=== PATIENT | female | born 1985 | race Two or more races ===

== ENCOUNTER 2023-07-23 12:09 | Emergency (ER) | payer OTHER, MEDICAID, SELFPAY ==
[2023-07-23 12:22] VITALS: BP 170/110; PULSE 121; O2SAT 18; BMI 26.4
[2023-07-23 12:32] VITALS: BP 166/103; PULSE 115; RESP 18; TEMP 36.6; O2SAT 98
--- NOTE | 2023-07-23 12:35 | PC.NURSE ---
pt comes in via ems after being found
--- NOTE | 2023-07-23 12:35 | PC.NURSE ---
pt comes in via ems. pt was found on [facility] where a bystander brought pt to [facility]. puneet brought pt and pt's son in by ambulation. upon initial assessment, pt was extremely disheveled and withdrawn from conversation. son was climbing all over mother where pt had no emotion. when asking pt questions, pt was barely responding to questions being asked. provider came in to speak w/ pt. pt states she is here for intoxication but refused to answer any other questions. when provider left, this RN had conversation with pt and pt states that she denies substance use of any kind. pt became extremely shaky when asking pt what we can do for her. while asking pt questions, this RN asked pt if she had thought of SI/HI - pt denied. asked pt if she felt unsafe - pt verbalized that she felt unsafe in present environment as well as at home. this rn asked pt if she was in trouble and if she was trying to run away from someone - pt stated yes. attempted to ask a few more questions but pt refused to answer any. let pt know to press the call hernández when she is ready to speak with me.
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
[2023-07-23 12:55] LABS: MANUAL DIFF FLAG NO
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
[2023-07-23 12:57] LABS: Basophils Absolute Auto 0.1 X10*3/uL (0.0-0.2); Basophils Percent Auto 0.4 % (0-2); Eosinophils Absolute Auto 0.1 X10*3/uL (0.0-0.4); Eosinophils Percent Auto 0.4 % (0-4); Hematocrit 43.3 % (37.0-47.0); Hemoglobin 14.1 g/dl (12.0-16.0); Imm Gran Abs Auto 0.03 X10*3/uL (0.00-0.03); Imm Gran Pct Auto 0.3 % (0.0-0.4); Lymphocytes Absolute Auto 2.4 X10*3/uL (1.2-4.9); Lymphocytes Percent Auto 20.4 % (20-40); Mean Corpuscular HGB Conc 32.6 g/dl (31.0-35.0); Mean Corpuscular Hemoglobin 27.2 pg (27.0-33.0); Mean Corpuscular Volume 83.6 fL (80.0-98.0); Mean Platelet Volume 9.6 fL (9.4-12.3); Monocytes Absolute Auto 1.1 X10*3/uL (0.1-1.2); Neutrophils Absolute Auto 8.2 x10*3/uL (2.0-8.3); Neutrophils Percent Auto 69.5 % (45-73); Platelet Count 412 X10*3/uL (160-400); Red Blood Count 5.18 X10*6/uL (4.20-5.50); Red Cell Distribution Width 13.1 % (11.0-16.0); White Blood Count 11.8 X10*3/uL (4.8-10.8)
--- NOTE | 2023-07-23 12:59 | PC.NURSE ---
call placed to [facility], officer to come to [facility]
[2023-07-23 13:16] LABS: Acetaminophen LAB < 17 mcg/mL (<30); Salicylate < 5.0 mg/dL (15-30)
[2023-07-23 13:24] LABS: Anion Gap 14 (12-20); HCG Quantitative < 2 mIU/mL
[2023-07-23 13:26] LABS: Alanine Aminotransferase 10 U/L (0-31); Albumin Level 4.5 g/dL (3.5-5.0); Alkaline Phosphatase 82 U/L (39-117); Aspartate Amino Transferase 16 U/L (5-31); Bilirubin Total 0.9 mg/dL (0.0-1.0); Blood Urea Nitrogen 10 mg/dL (9-16); Calcium 9.9 mg/dL (8.4-10.2); Carbon Dioxide 22 mmol/L (22-29); Chloride 106 mmol/L (96-108); Creatinine Clr Calc Pharmacy 86.3; Estimated Glomerular Filt Rate > 60; Ethanol < 10 mg/dL; Glucose Random 114 mg/dL (60-115); Magnesium 1.9 mg/dL (1.6-2.6); Potassium 3.7 mmol/L (3.3-5.1); Sodium 138 mmol/L (135-145); Total Protein 8.7 g/dL (6.5-8.0)
[2023-07-23 13:33] LABS: VBG Base Excess -1.1 mmol/L; VBG HCO3 21 mmol/L (22-26); VBG pCO2 28 mmHg; VBG pH 7.47 (7.32-7.43); VBG pO2 64 mmHg
[2023-07-23 13:34] LABS: Carbon Monoxide Refer to POC result
--- NOTE | 2023-07-23 13:43 | PC.NURSE ---
call placed to [facility] again. still no response from them if a person is coming out to [facility]. David states he is going to call his customer engagement manager again.
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
--- NOTE | 2023-07-23 14:47 | PC.NURSE ---
instructional support specialist # for high risk victims unit called [phone] heriberto instructional support specialist to be contacted and will call back to the ed
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
--- NOTE | 2023-07-23 15:42 | PC.NURSE ---
adam from [facility] stated they are no longer coming to the ED. told to contact rory medical assistant supervisor [phone]
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
[2023-07-23 16:00] VITALS: BP 148/95; PULSE 85; RESP 16; O2SAT 97
--- NOTE | 2023-07-23 16:22 | PC.NURSE ---
MSP arrival to ed
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
--- NOTE | 2023-07-23 17:16 | PC.NURSE ---
trooper contact info [phone] and [phone]
--- NOTE | 2023-07-23 17:31 | PC.NURSE ---
MSP left info with patient for further contact if needed/wanted.
--- NOTE | 2023-07-23 17:44 | PC.NURSE ---
multiple attempts to rereach rory and DCF office. no answer. currently on hold with the DCF hotline
--- NOTE | 2023-07-23 17:48 | PC.NURSE ---
hotline reports that the call was recieved at 1700 and at 1730 a team was dispatched out to [facility] ED
--- NOTE | 2023-07-23 18:05 | MHC.CM.ED ---
Addendum entered by Amelia Younger 07/23/23 21:52: DCF in to speak with patient. Patient agreeable to having child cared for by friend, Fidelina Miranda, will she remains in the ED for psych evaluation. Urine tox screen obtained and is negative. Pt is awaiting crisis evaluation. CM will follow for discharge planning when cleared by psych or if necessary. Original Note: CM consulted. Pt awaiting DCF and probable psych consult. CM will assess patient for discharge needs in needed.
--- NOTE | 2023-07-23 18:27 | PC.NURSE ---
pt requesting dc paperwork. [facility] hotline being called right now as instructed earlier by rory rae applications project manager
--- NOTE | 2023-07-23 18:39 | PC.NURSE ---
hotline tire building supervisor called states she is calling her team to see where they are. will call back. pt is pacing the doorway of her room asking for papers to leave.
--- NOTE | 2023-07-23 19:42 | PC.NURSE ---
DCF in interviewing pt,
[2023-07-23 20:40] LABS: Appearance Urine Clear; Color Urine Dark Yellow; Glucose Urine UA Negative (Negative); Leukocyte Esterase Urine Small (1+) (Negative); Nitrite Urine Negative (Negative); Specific Gravity - Urine 1.025 (1.005-1.025); UMIC TRIGGER UACC YES; Urine Blood Small (1+) (Negative); Urine Ketones 40 mg/dL (Negative); Urine Protein 300 (3+) mg/dL (Neg-Trace)
[2023-07-23 20:49] LABS: Bacteria Urine 3+ (None Seen); RBC Urine >20 /HPF (0-2); UACC Culture Trigger YES
[2023-07-23 20:56] LABS: Amphetamine Screen Urine Not Detected (Not Detect); Barbiturates, Urine Not Detected (Not Detect); Benzodiazepines Screen Urine Not Detected (Not Detect); Cannabinoid Screen Urine Not Detected (Not Detect); Cocaine Screen Urine Not Detected (Not Detect); Fentanyl, urine Not Detected (Not Detect); Opiate Screen Urine Not Detected (Not Detect); Phencyclidine Screen Urine Not Detected (Not Detect)
--- NOTE | 2023-07-23 21:36 | MHC.CARE ---
Per DCF investigators, Fidelina Miranda, a friend of the patient has been approved to take care of pt's child overnight while pt is assessed by security trainer.
[2023-07-23 22:00] VITALS: BP 145/103; PULSE 82; RESP 16; TEMP 37.1; O2SAT 97
--- NOTE | 2023-07-23 22:47 | PC.NURSE ---
care team in with pt
[2023-07-24] VITALS: BP 130/86; PULSE 84; RESP 16; TEMP 37.1; O2SAT 100
[2023-07-24 06:10] VITALS: BP 150/87; PULSE 67; RESP 16; TEMP 37.1; O2SAT 97
== END 2023-07-24 07:03 | disposition home or self-care (01) ==
PROVIDERS: Physician Assistant; Emergency Provider Emergency Medicine
DX: F41.1 Generalized anxiety disorder (principal); F43.9 Reaction to severe stress, unspecified; Z79.899 Other long term (current) drug therapy
CPT/HCPCS: 36415; 80053; 80143; 80179; 80307; 81001; 82803; 83735; 84702; 85025; 87086; 99284; 99285; S9485

== ENCOUNTER 2024-03-04 10:15 | Outpatient (REF) | payer MEDICAID, SELFPAY ==
[2024-03-04 10:49] LABS: MANUAL DIFF FLAG NO
[2024-03-04 10:51] LABS: Basophils Absolute Auto 0.1 X10*3/uL (0.0-0.2); Basophils Percent Auto 0.3 % (0-2); Eosinophils Absolute Auto 0.3 X10*3/uL (0.0-0.4); Eosinophils Percent Auto 1.7 % (0-4); Hematocrit 41.5 % (37.0-47.0); Hemoglobin 13.5 g/dl (12.0-16.0); Imm Gran Abs Auto 0.12 X10*3/uL (0.00-0.03); Imm Gran Pct Auto 0.8 % (0.0-0.4); Lymphocytes Absolute Auto 3.9 X10*3/uL (1.2-4.9); Lymphocytes Percent Auto 26.6 % (20-40); Mean Corpuscular HGB Conc 32.5 g/dl (31.0-35.0); Mean Corpuscular Hemoglobin 26.6 pg (27.0-33.0); Mean Corpuscular Volume 81.9 fL (80.0-98.0); Mean Platelet Volume 9.1 fL (9.4-12.3); Neutrophils Absolute Auto 9.3 x10*3/uL (2.0-8.3); Neutrophils Percent Auto 63.6 % (45-73); Platelet Count 442 X10*3/uL (160-400); Red Blood Count 5.07 X10*6/uL (4.20-5.50); Red Cell Distribution Width 13.1 % (11.0-16.0); White Blood Count 14.7 X10*3/uL (4.8-10.8)
[2024-03-04 11:18] LABS: Alanine Aminotransferase 14 U/L (0-31); Alkaline Phosphatase 90 U/L (39-117); Anion Gap 11 (12-20); Aspartate Amino Transferase 18 U/L (5-31); Bilirubin Total 0.4 mg/dL (0.0-1.0); Blood Urea Nitrogen 12 mg/dL (9-16); Calcium 9.5 mg/dL (8.4-10.2); Carbon Dioxide 29 mmol/L (22-29); Chloride 103 mmol/L (96-108); Cholesterol 206 mg/dL (<200); Estimated Glomerular Filt Rate > 60; Glucose Random 111 mg/dL (60-115); HDL Cholesterol 43 mg/dL (>40); LDL Cholesterol Calculated 135 mg/dL (<100); Potassium 4.3 mmol/L (3.3-5.1); Sodium 139 mmol/L (135-145); Total Protein 7.9 g/dL (6.5-8.0); Triglycerides 143 mg/dL (<150)
[2024-03-04 11:34] LABS: Thyroid Stimulating Hormone 2.13 uIU/mL (0.32-4.0)
[2024-03-04 14:31] LABS: Creatinine Urine 217.18 mg/dL; Microalbum/Creatinine Ratio Ur 61.6 ug/mg cr (<30)
== END 2024-03-04 10:16 | disposition home or self-care (01) ==
LOC: HO.10HDL 10:15
PROVIDERS: Visit Provider Internal Medicine
DX: Z00.01 Encounter for general adult medical examination with abnormal findings (principal); I10 Essential (primary) hypertension
CPT/HCPCS: 36415; 80053; 80061; 82043; 82570; 84443; 85025

== ENCOUNTER 2024-03-19 10:09 | Outpatient (REF) | payer MEDICAID, SELFPAY ==
[2024-03-19 10:39] LABS: MANUAL DIFF FLAG NO
[2024-03-19 10:48] LABS: Basophils Absolute Auto 0.1 X10*3/uL (0.0-0.2); Basophils Percent Auto 0.4 % (0-2); Eosinophils Absolute Auto 0.2 X10*3/uL (0.0-0.4); Eosinophils Percent Auto 1.5 % (0-4); Hematocrit 40.7 % (37.0-47.0); Hemoglobin 13.1 g/dl (12.0-16.0); Imm Gran Abs Auto 0.05 X10*3/uL (0.00-0.03); Imm Gran Pct Auto 0.4 % (0.0-0.4); Lymphocytes Absolute Auto 2.9 X10*3/uL (1.2-4.9); Lymphocytes Percent Auto 25.5 % (20-40); Mean Corpuscular HGB Conc 32.2 g/dl (31.0-35.0); Mean Corpuscular Volume 83.7 fL (80.0-98.0); Mean Platelet Volume 9.5 fL (9.4-12.3); Monocytes Absolute Auto 0.7 X10*3/uL (0.1-1.2); Monocytes Percent Auto 6.4 % (2-11); Neutrophils Absolute Auto 7.6 x10*3/uL (2.0-8.3); Neutrophils Percent Auto 65.8 % (45-73); Platelet Count 461 X10*3/uL (160-400); Red Blood Count 4.86 X10*6/uL (4.20-5.50); Red Cell Distribution Width 13.2 % (11.0-16.0); White Blood Count 11.5 X10*3/uL (4.8-10.8)
[2024-03-20 09:04] LABS: Follicle Stimulating Hormone 2.1 mIU/mL; Prolactin 118.6 ng/mL
== END 2024-03-19 10:10 | disposition home or self-care (01) ==
LOC: HO.10HDL 10:09
PROVIDERS: Visit Provider Internal Medicine
DX: D64.89 Other specified anemias (principal); F32.89 Other specified depressive episodes; I10 Essential (primary) hypertension; N91.1 Secondary amenorrhea
CPT/HCPCS: 36415; 83001; 84146; 85025

== ENCOUNTER 2024-05-19 10:47 | Outpatient (REF) | payer MEDICAID, SELFPAY ==
--- NOTE | ~2024-05-19 | MR_ITS ---
EXAMINATION: MR BRAIN WITHOUT AND WITH CONTRAST CLINICAL INFORMATION: Hyperprolactinemia COMPARISON: None TECHNIQUE: Multiplanar multisequence MR imaging of the brain was obtained without and following the administration of 4 mL Gadavist intravenous contrast. FINDINGS: The pituitary gland is normal in overall size, contour, and signal intensity on precontrast imaging. It enhances homogeneously on postcontrast sequences, without any evidence of focal delayed enhancement to suggest a microadenoma. The infundibulum remains midline and the optic chiasm is in a normal location. The cavernous sinus enhances normally. There is no acute infarct on diffusion-weighted imaging. No extra-axial collection or mass effect/herniation. Normal parenchymal signal characteristics. No hydrocephalus. The ventricles are normal in morphology and size. No abnormal parenchymal or extra-axial enhancement. The major flow voids at the skull base are preserved. The midline structures are normal. The cerebellar tonsils are normally positioned. The craniocervical junction is normal. Marrow signal is within normal limits. The visualized soft tissues are without significant abnormality. Right posterior ethmoid sinus mucosal thickening. MR/MR head/brain wo/w con IMPRESSION: Unremarkable contrast-enhanced MRI of the brain. No evidence of pituitary adenoma.
[2024-05-19] MEDS: gadobutroL 2 ML VIAL IVPUSH ×2 (12:07→12:08)
== END 2024-05-19 10:48 | disposition home or self-care (01) ==
LOC: HO.MRI 10:47
PROVIDERS: PCP Internal Medicine; Visit Provider Internal Medicine
DX: E22.1 Hyperprolactinemia (principal)
CPT/HCPCS: 70553; A9585

== ENCOUNTER 2025-03-24 11:40 | Outpatient (REF) | payer MEDICAID, SELFPAY ==
[2025-03-24 12:55] LABS: MANUAL DIFF FLAG NO
[2025-03-24 13:15] LABS: Basophils Absolute Auto 0.1 X10*3/uL (0.0-0.2); Basophils Percent Auto 0.5 % (0-2); Eosinophils Absolute Auto 0.2 X10*3/uL (0.0-0.4); Eosinophils Percent Auto 1.5 % (0-4); Hematocrit 38.6 % (37.0-47.0); Hemoglobin 12.4 g/dl (12.0-16.0); Imm Gran Abs Auto 0.05 X10*3/uL (0.00-0.03); Imm Gran Pct Auto 0.4 % (0.0-0.4); Lymphocytes Absolute Auto 2.8 X10*3/uL (1.2-4.9); Lymphocytes Percent Auto 25.2 % (20-40); Mean Corpuscular HGB Conc 32.1 g/dl (31.0-35.0); Mean Corpuscular Hemoglobin 27.2 pg (27.0-33.0); Mean Corpuscular Volume 84.6 fL (80.0-98.0); Mean Platelet Volume 9.6 fL (9.4-12.3); Monocytes Absolute Auto 0.9 X10*3/uL (0.1-1.2); Neutrophils Absolute Auto 7.2 x10*3/uL (2.0-8.3); Neutrophils Percent Auto 64.4 % (45-73); Platelet Count 477 X10*3/uL (160-400); Red Blood Count 4.56 X10*6/uL (4.20-5.50); White Blood Count 11.1 X10*3/uL (4.8-10.8)
[2025-03-24 13:17] LABS: Alanine Aminotransferase 21 U/L (0-31); Alkaline Phosphatase 92 U/L (39-117); Anion Gap 11 (12-20); Aspartate Amino Transferase 25 U/L (5-31); Bilirubin Total 0.3 mg/dL (0.0-1.0); Blood Urea Nitrogen 12 mg/dL (9-16); Calcium 9.2 mg/dL (8.4-10.2); Carbon Dioxide 27 mmol/L (22-29); Chloride 103 mmol/L (96-108); Estimated Glomerular Filt Rate > 60; Glucose Random 92 mg/dL (60-115); Potassium 4.1 mmol/L (3.3-5.1); Sodium 137 mmol/L (135-145); Total Protein 7.5 g/dL (6.5-8.0)
[2025-03-24 13:44] LABS: Creatinine Urine 323.53 mg/dL; Protein/Creatinine Ratio, Ur 0.25 (<0.2); Total Protein Urine Random 80 mg/dL (<12)
== END 2025-03-24 11:41 | disposition home or self-care (01) ==
LOC: HO.10HDL 11:40
PROVIDERS: Visit Provider Internal Medicine
DX: Z00.00 Encounter for general adult medical examination without abnormal findings (principal); R80.8 Other proteinuria; D64.9 Anemia, unspecified; I10 Essential (primary) hypertension
CPT/HCPCS: 36415; 80053; 82570; 84156; 85025

== ENCOUNTER 2025-03-28 09:51 | Outpatient (REF) | payer MEDICAID, SELFPAY | END 2025-03-28 09:52 | disposition home or self-care (01) | LOC: HO.MAMMO 09:51 | PROVIDERS: PCP Internal Medicine; Visit Provider Internal Medicine | DX: Z12.31 Encounter for screening mammogram for malignant neoplasm of breast (principal) | CPT/HCPCS: 77063; 77067 ==

== ENCOUNTER → 2025-03-28 10:15 | Outpatient (BNV) | payer MEDICAID, SELFPAY | PROVIDERS: PCP Internal Medicine; Visit Provider Internal Medicine | DX: Z12.31 Encounter for screening mammogram for malignant neoplasm of breast (principal) | CPT/HCPCS: 77063; 77067 ==

== ENCOUNTER 2025-03-31 09:56 | Outpatient (AMB) | payer MEDICAID, SELFPAY ==
--- NOTE | 2025-03-31 09:58 | HO.NEPHOV ---
Vital Signs 03/31/25 10:00 Height 5 ft 1 in Weight 163 lb BMI 30.8 BP 110/74 Blood Pressure Location Rt brachial Position Sitting Intake Visit Reasons: ENP: HTN & Proteinuria/ Conf Intake Note: Patient presents for follow up Allergies lactose Allergy (Verified 03/31/25 10:01) Unknown Medication List - Last Reconciled 03/31/25 by Jack Loera MD docusate sodium 100 mg PO BID escitalopram oxalate mg PO labetalol 200 mg PO BID magnesium oxide 400 mg PO DAILY nifedipine ER 30 mg PO DAILY norethindrone (contraceptive) mg PO HPI Comments Details: Moriah is a pleasant 39-year-old woman referred for proteinuria. She tells me that she has had proteinuria in the past. Few years ago she was seen in [place] and she had a workup. However she did not follow-up. She has a history of preeclampsia. She has had 3 pregnancies. She is currently 8 weeks . She lost her baby. Baby had trisomy 18 and was made comfort care. In the past she has been on antihypertensive medications. Currently she is on nifedipine and labetalol. She does not remember take any DAVID inhibitors or ARB use. [facility] Medical History Depression Asthma Hypertension Surgical History History of appendectomy Family History Father Lung cancer Mother Hypertension Kidney disease Diabetes mellitus Social History Alcohol intake: never Review of Systems Const Denies fever(s) and Denies weight loss Card Denies chest pain Resp Denies cough and Denies hemoptysis GI Denies abdominal pain, Denies diarrhea and Denies nausea Musc Denies back pain Neuro Denies focal weakness Physical Exam Vital Signs: Last Vital Signs BP 110/74 03/31/25 10:00 BMI result Body Mass Index 30.8 Comfortable Neck supple no JVD. Lungs entry equal no rales. Heart S1-S2 heard no gallop or rub. Abdomen soft nontender. Neuro alert awake oriented. No asterixis. Extremities no edema. Results Reviewed Nephrology Results: Hgb 12.4 g/dl (12.0-16.0) 03/24/25 WBC 11.1 X10*3/uL (4.8-10.8) H 03/24/25 Plt Count 477 X10*3/uL (160-400) H 03/24/25 Sodium 137 mmol/L (135-145) 03/24/25 Potassium 4.1 mmol/L (3.3-5.1) 03/24/25 Chloride 103 mmol/L (96-108) 03/24/25 Carbon Dioxide 27 mmol/L (22-29) 03/24/25 BUN 12 mg/dL (9-16) 03/24/25 Creatinine 0.72 mg/dL (0.5-1.4) 03/24/25 Calcium 9.2 mg/dL (8.4-10.2) 03/24/25 Urine Protein 300 (3+) mg/dL (Neg-Trace) H 07/23/23 Urine Creatinine 323.53 mg/dL 03/24/25 Protein/Creatinin Ratio 0.25 (<0.2) H 03/24/25 Assessment & Plan Assessment & Plan (1) Proteinuria: Code(s): R80.9 - Proteinuria, unspecified Category: Medical Plan Young woman with hypertension and proteinuria. Renal function is normal. She has a history of preeclampsia. She also has an elevated BMI. I have initiated a workup for the proteinuria including basic serologies as outlined below. She should stay on low-sodium diet. She will benefit from weight loss. Maintain blood pressure less than 130/80. I would consider starting her on DAVID inhibitor or ARB once the basic workup is completed. Depending on the serologies she may require a kidney biopsy for a definite diagnosis. I have answered all her questions. She we will return to the office in the next few weeks. Orders: Orders Creatinine Urine Today R80.9 - Proteinuria, unspecified Complement C3 Today R80.9 - Proteinuria, unspecified Complement C4 Today R80.9 - Proteinuria, unspecified Neutrophil Cytoplasma Ab Today R80.9 - Proteinuria, unspecified Phospholipase A2 Receptor Pnl Today R80.9 - Proteinuria, unspecified US renal BI Today I10 - Essential (primary) hypertension, R80.9 - Proteinuria, unspecified UA and rflx microscopic Today R80.9 - Proteinuria, unspecified Total Protein Urine Random Today R80.9 - Proteinuria, unspecified Protein Electrophoresis, Serum Today R80.9 - Proteinuria, unspecified MEG Reflex Titer and Pattern Today R80.9 - Proteinuria, unspecified Coding Level of Care Code New Pt Level 4 (03448) Diagnoses Proteinuria R80.9
[2025-03-31 10:00] VITALS: BP 110/74; BMI 30.8
== END 2025-03-31 10:18 | disposition home or self-care (01) ==
LOC: HO.HKA 09:57
PROVIDERS: PCP Internal Medicine; Visit Provider Internal Medicine Hypertension Specialist
DX: R80.9 Proteinuria, unspecified (principal)
CPT/HCPCS: 99204

== ENCOUNTER → 2025-03-31 09:56 | Outpatient (BNVA) | payer MEDICAID, SELFPAY | PROVIDERS: PCP Internal Medicine; Visit Provider Internal Medicine Hypertension Specialist | DX: R80.9 Proteinuria, unspecified (principal) | CPT/HCPCS: 99202 ==

== ENCOUNTER 2025-03-31 10:21 | Outpatient (REF) | payer MEDICAID, SELFPAY ==
[2025-03-31 14:10] LABS: Appearance Urine Cloudy; Color Urine Dark Yellow; Glucose Urine UA Negative (Negative); Leukocyte Esterase Urine Trace (Negative); Nitrite Urine Negative (Negative); Specific Gravity - Urine 1.025 (1.005-1.025); UMIC TRIGGER UA YES; Urine Blood Negative (Negative); Urine Ketones Trace mg/dL (Negative); Urine Protein 300 (3+) mg/dL (Neg-Trace)
[2025-03-31 14:24] LABS: Bacteria Urine 4+ (None Seen); Squamous Epithelial Cell Urine >20 /HPF (0-2)
[2025-03-31 14:34] LABS: Creatinine Urine 395.78 mg/dL
[2025-03-31 14:46] LABS: Total Protein Urine Random 203 mg/dL (<12)
[2025-04-01 13:08] LABS: Anti Nuclear Antibody Screen NEGATIVE (NEGATIVE)
[2025-04-03 17:04] LABS: Prot Elec - Albumin 3.9 g/dL (3.8-4.8); Prot Elec - Alpha1 0.3 g/dL (0.2-0.3); Prot Elec - Alpha2 0.9 g/dL (0.5-0.9); Prot Elec - Beta 1 0.5 g/dL (0.4-0.6); Prot Elec - Beta 2 0.5 g/dL (0.2-0.5); Prot Elec - Gamma 1.2 g/dL (0.8-1.7); Prot Elec - Total Protein 7.4 g/dL (6.1-8.1)
[2025-04-04 09:54] LABS: Neutrophil Cyto Ab Screen NEGATIVE (NEGATIVE)
[2025-04-04 11:03] LABS: Complement C3 171 mg/dL (83-193)
[2025-04-06 07:29] LABS: Phospholipase A2 IgG ELISA <4 RU/mL; Phospholipase A2 IgG IFA NEGATIVE (NEGATIVE)
== END 2025-03-31 10:22 | disposition home or self-care (01) ==
LOC: HO.10HDL 10:21
PROVIDERS: Visit Provider Internal Medicine Hypertension Specialist
DX: R80.9 Proteinuria, unspecified (principal)
CPT/HCPCS: 36415; 81001; 81003; 82570; 83520; 84156; 84165; 86036; 86038; 86160; 86255

== ENCOUNTER 2025-04-08 13:12 | Outpatient (REF) | payer MEDICAID, SELFPAY ==
--- NOTE | ~2025-04-08 | US_ITS ---
EXAMINATION: US KIDNEY BILATERAL HISTORY: I10 - Essential (primary) hypertension TECHNIQUE: Real-time grayscale ultrasound imaging of the kidneys was performed and images were reviewed. COMPARISON: There are no prior studies for comparison. FINDINGS: Right kidney: The right kidney measures 10.0 x 4.8 x 4.6 cm. Renal parenchymal echotexture and thickness are normal. There are no masses. There is no hydronephrosis or renal calculi. Left Kidney: The left kidney measures 11.2 x 5.5 x 4.8 cm. Renal parenchymal echotexture and thickness are normal. There are no masses. There is no hydronephrosis or renal calculi. US/US renal BI IMPRESSION: Unremarkable renal ultrasound. Electronically signed by: Ren Reyes MD 04/08/2025 01:37 PM EDT
--- OUTSIDE RECORDS SUMMARY | 2025-04-08 13:15 | XMS_ITS | Patient Health Record ---
Author Organization [facility] Address [address], [place] [id number] Care Team Providers Care Malt House Kiln Operator Name Role Phone No, PCP Primary Care Provider UnavailSridevi Phillips Unavailable [phone] Supportive, Counseling Unavailable UnavailCuco Farrar Unavailable [phone] Reason For Referral No Information Encounters Encounter Location Date Provider Diagnosis [facility] [address], [place] [phone] 04/21/2024 Cuco Argueta [facility] [id number] 09/09/2024 Sridevi Krishnan Plan Of Treatment No Information Insurance Providers Payer Name Payer Address Payer Phone Subscriber Number Group Number Insured Name Patient Relationship to Insured Coverage Start Date Coverage End Date [place] Medicaid Standard [address] [place] [address] [id number] Moriah Ambrocio Self - patient is the insured 2
== END 2025-04-08 13:13 | disposition home or self-care (01) ==
LOC: HO.HMGCX 13:12
PROVIDERS: PCP Internal Medicine; Visit Provider Internal Medicine Hypertension Specialist
DX: I10 Essential (primary) hypertension (principal); R80.9 Proteinuria, unspecified
CPT/HCPCS: 76775

== ENCOUNTER → 2025-04-08 13:15 | Outpatient (BNV) | payer MEDICAID, SELFPAY | PROVIDERS: PCP Internal Medicine; Visit Provider Radiology Diagnostic Radiology | DX: I10 Essential (primary) hypertension (principal) | CPT/HCPCS: 76775 ==

== ENCOUNTER 2025-05-24 10:07 | Outpatient (AMB) | payer MEDICAID, SELFPAY ==
[2025-05-24 10:11] VITALS: BP 130/78; PULSE 76; O2SAT 98; BMI 31.6
--- NOTE | 2025-05-24 10:11 | HO.NEPHOV ---
Vital Signs 05/24/25 10:11 Height 5 ft 1 in Weight 167 lb BMI 31.6 BP 130/78 Blood Pressure Location Rt brachial Position Sitting Pulse 76 Pulse Source Pulse Oximeter Pulse Oximetry (%) 98 Oxygen Delivery Method Room Air Intake Visit Reasons: FU/ Conf Applications Scientist Required: No Accompanied by: Self / Same As Patient Allergies lactose Allergy (Verified 05/24/25 10:14) Unknown Medication List - Last Reviewed 05/24/25 by EMERSON Raya escitalopram oxalate 15 mg PO DAILY hydroxyzine HCl 10 mg PO BID PRN losartan 100 mg PO DAILY magnesium oxide 400 mg PO DAILY HPI Comments Details: Moriah is a pleasant 39-year-old woman referred for proteinuria. She tells me that she has had proteinuria in the past. Few years ago she was seen in [place] and she had a workup. However she did not follow-up. She has a history of preeclampsia. She has had 3 pregnancies. She is currently 8 weeks . She lost her baby. Baby had trisomy 18 and was made comfort care. In the past she has been on antihypertensive medications. Currently she is on nifedipine and labetalol. She does not remember take any DAVID inhibitors or ARB use. 05/24/25 39-year-old female presenting for management of proteinuria and hypertension. Proteinuria was identified with a level close to 500 mg, which is above normal limits. The patient was started on losartan by PCP, which is expected to help reduce protein levels in the urine. Hypertension is a contributing factor to the proteinuria, and the patient is currently on losartan 100 mg, which is the maximum dose. The patient has not been monitoring her blood pressure regularly but reported a reading of 130/80 mmHg during the visit. The patient has experienced a weight increase from 163 to 167 pounds, which may also contribute to the proteinuria. [facility] Medical History (Updated 03/31/25 @ 10:15 by Jack Loera MD) Depression Asthma Hypertension Surgical History (Updated 05/24/25 @ 10:14 by EMERSON Raya) H/O tubal ligation (~05/2025) History of appendectomy Family History Father Lung cancer Mother Hypertension Kidney disease Diabetes mellitus Social History Alcohol intake: never Physical Exam Vital Signs: Last Vital Signs Pulse 76 05/24/25 10:11 BP 130/78 05/24/25 10:11 Pulse Ox 98 05/24/25 10:11 Oxygen Delivery Method Room Air 05/24/25 10:11 BMI result Body Mass Index 31.6 Comfortable Neck supple no JVD. Lungs entry equal no rales. Heart S1-S2 heard no gallop or rub. Abdomen soft nontender. Neuro alert awake oriented. No asterixis. Extremities no edema. Results Reviewed Results Reviewed: Urine Pro: Cr 0.5 USG_ Normal Nephrology Results: Hgb, (12.0-16.0) 12.4 g/dl 03/24/25 WBC, (4.8-10.8) 11.1 X10*3/uL H 03/24/25 Plt Count, (160-400) 477 X10*3/uL H 03/24/25 Sodium, (135-145) 137 mmol/L 03/24/25 Potassium, (3.3-5.1) 4.1 mmol/L 03/24/25 Chloride, (96-108) 103 mmol/L 03/24/25 Carbon Dioxide, (22-29) 27 mmol/L 03/24/25 BUN, (9-16) 12 mg/dL 03/24/25 Creatinine, (0.5-1.4) 0.72 mg/dL 03/24/25 Calcium, (8.4-10.2) 9.2 mg/dL 03/24/25 Urine Protein, (Neg-Trace) 300 (3+) mg/dL H 03/31/25 Urine Creatinine 395.78 mg/dL 03/31/25 Protein/Creatinin Ratio, (<0.2) 0.25 H 03/24/25 Renal US 04/08/25 Assessment & Plan Assessment & Plan (1) Proteinuria: Code(s): R80.9 - Proteinuria, unspecified Category: Medical Plan Young woman with hypertension and proteinuria. Renal function is normal. She has a history of preeclampsia. She also has an elevated BMI. workup for the proteinuria including basic serologies were all normal She should stay on low-sodium diet. She will benefit from weight loss. She has been advised to engage in regular physical activity, such as walking for 40 minutes daily, and to reduce sugar and carbohydrate intake to aid in weight management. Maintain blood pressure less than 130/80. Agree with Losartan 100 mg QD Based on the normal serologies , I would hold off on kidney biopsy Orders: Orders Basic Metabolic Panel 4 Months R80.9 - Proteinuria, unspecified Creatinine Urine 4 Months R80.9 - Proteinuria, unspecified UA and rflx microscopic 4 Months R80.9 - Proteinuria, unspecified Total Protein Urine Random 4 Months R80.9 - Proteinuria, unspecified Coding Level of Care Code Est Pt Level 4 (93465) Diagnoses Proteinuria R80.9
--- OUTSIDE RECORDS SUMMARY | 2025-05-24 11:10 | XMS_ITS | Patient Health Record ---
Author Organization [facility] Address [address], [place] [id number] Care Team Providers Care Crester Name Role Phone NO, PCP Primary Care Provider Sridevi Krishnan Unavailable [phone] ZZArchive - DO NOT USE, Supportive Counseling Un available Unavailable Reason For Referral No Information Encounters Encounter Location Date Provider Diagnosis [facility] [address], [place] [phone] 09/09/2024 Sridevi Krishnan Plan Of Treatment No Information Insurance Providers Payer Name Payer Address Payer Phone Subscriber Number Group Number Insured Name Patient Relationship to Insured Coverage Start Date Coverage End Date [place] Medicaid Standard [address] [place] [address] [id number] Moriah Ambrocio Self - patient is the insured 2
== END 2025-05-24 10:25 | disposition home or self-care (01) ==
LOC: HO.HKA 10:08
PROVIDERS: PCP Internal Medicine; Visit Provider Internal Medicine Hypertension Specialist
DX: R80.9 Proteinuria, unspecified (principal)
CPT/HCPCS: 99214

== ENCOUNTER → 2025-05-24 10:07 | Outpatient (BNVA) | payer MEDICAID, SELFPAY | PROVIDERS: PCP Internal Medicine; Visit Provider Internal Medicine Hypertension Specialist | DX: I10 Essential (primary) hypertension (principal); R80.9 Proteinuria, unspecified | CPT/HCPCS: 99212 ==

== ENCOUNTER 2025-08-31 11:01 | Outpatient (REF) | payer MEDICAID, SELFPAY ==
[2025-08-31 13:06] LABS: MANUAL DIFF FLAG NO
[2025-08-31 13:13] LABS: Hematocrit 39.3 % (37.0-47.0); Hemoglobin 12.5 g/dl (12.0-16.0); Imm Gran Abs Auto 0.10 X10*3/uL (0.00-0.03); Imm Gran Pct Auto 0.6 % (0.0-0.4); Lymphocytes Absolute Auto 2.6 X10*3/uL (1.2-4.9); Mean Corpuscular HGB Conc 31.8 g/dl (31.0-35.0); Mean Corpuscular Hemoglobin 26.7 pg (27.0-33.0); Mean Corpuscular Volume 83.8 fL (80.0-98.0); NRBC Abs Auto 0.000 X10*3/uL (0.0-0.012); NRBC Pct Auto 0.0 /100WBC (0.0-0.2); Platelet Count 396 X10*3/uL (160-400); Red Blood Count 4.69 X10*6/uL (4.20-5.50); White Blood Count 16.5 X10*3/uL (4.8-10.8)
[2025-08-31 13:37] LABS: Alanine Aminotransferase 9 U/L (0-31); Albumin Level 4.3 g/dL (3.5-5.0); Alkaline Phosphatase 104 U/L (39-117); Anion Gap 13 (12-20); Aspartate Amino Transferase 17 U/L (5-31); Blood Urea Nitrogen 22 mg/dL (9-16); Calcium 9.4 mg/dL (8.4-10.2); Carbon Dioxide 27 mmol/L (22-29); Chloride 101 mmol/L (96-108); Cholesterol 194 mg/dL (<200); Estimated Glomerular Filt Rate > 60; HDL Cholesterol 44 mg/dL (>40); Potassium 3.6 mmol/L (3.3-5.1); Sodium 137 mmol/L (135-145); Total Protein 8.0 g/dL (6.5-8.0); Triglycerides 105 mg/dL (<150)
[2025-08-31 13:54] LABS: Ferritin 71 ng/mL (10-250); Thyroid Stimulating Hormone 1.38 uIU/mL (0.32-4.0)
== END 2025-08-31 11:02 | disposition home or self-care (01) ==
LOC: HO.10HDL 11:01
PROVIDERS: Visit Provider Internal Medicine
DX: D64.9 Anemia, unspecified (principal); E78.00 Pure hypercholesterolemia, unspecified; I10 Essential (primary) hypertension; R80.8 Other proteinuria
CPT/HCPCS: 36415; 80053; 80061; 82728; 84146; 84443; 85025

== ENCOUNTER 2025-09-13 10:29 | Outpatient (REF) | payer MEDICAID, SELFPAY ==
--- OUTSIDE RECORDS SUMMARY | 2025-09-13 12:21 | XMS_ITS | Patient Health Record ---
Author Organization [facility] Address [address] [place] [address] Care Team Providers Care Supervisor Paste Mixing Name Role Phone NO, PCP Primary Care Provider Sridevi Krishnan Unavailable ZZArchive - DO NOT USE, Supportive Counseling Un available Unavailable Reason For Referral No Information Plan Of Treatment No Information Insurance Providers Payer Name Payer Address Payer Phone Subscriber Number Group Number Insured Name Patient Relationship to Insured Coverage Start Date Coverage End Date [place] Medicaid Standard [address] [place] [address] [phone] [id number] Moriah Ambrocio Self - patient is the insured 2
[2025-09-13 15:22] LABS: CT PCR Urine NOT DETECTED (Not Detect.); NG PCR Urine NOT DETECTED (Not Detect.)
[2025-09-14 03:15] LABS: Syphilis Screen Nonreactive (Nonreactive)
[2025-09-14 03:51] LABS: HIV Num 1 0.05 S/CO (0.00-0.99)
== END 2025-09-13 10:30 | disposition home or self-care (01) ==
LOC: HO.10HDL 10:29
PROVIDERS: Visit Provider Internal Medicine
DX: E22.1 Hyperprolactinemia (principal); I10 Essential (primary) hypertension; O92.6 Galactorrhea; Z11.3 Encounter for screening for infections with a predominantly sexual mode of transmission; Z11.4 Encounter for screening for human immunodeficiency virus [HIV]
CPT/HCPCS: 86780; 87389; 87491; 87591

== ENCOUNTER 2025-09-27 10:10 | Outpatient (AMB) | payer MEDICAID, SELFPAY ==
[2025-09-27 10:12] VITALS: BP 90/70; PULSE 81; O2SAT 96; BMI 32.1
--- NOTE | 2025-09-27 10:12 | HO.NEPHOV_ITS ---
Vital Signs 09/27/25 10:12 Height 5 ft 1 in Weight 170 lb BMI 32.1 BP 90/70 Blood Pressure Location Lt brachial Position Sitting Pulse 81 Pulse Source Pulse Oximeter Pulse Oximetry (%) 96 Oxygen Delivery Method Room Air Intake Visit Reasons: 4 MO FU ,phone not in service Linseed Oil Refiner Required: No Accompanied by: Self / Same As Patient Allergies lactose Allergy (Verified 09/27/25 10:14) Unknown HPI Comments Details: Moriah is a pleasant 39-year-old woman referred for proteinuria. She tells me that she has had proteinuria in the past. Few years ago she was seen in [place] and she had a workup. However she did not follow-up. She has a history of preeclampsia. She has had 3 pregnancies. She is currently 8 weeks . She lost her baby. Baby had trisomy 18 and was made comfort care. In the past she has been on antihypertensive medications. Currently she is on nifedipine and labetalol. She does not remember take any DAVID inhibitors or ARB use. 05/24/25 39-year-old female presenting for management of proteinuria and hypertension. Proteinuria was identified with a level close to 500 mg, which is above normal limits. The patient was started on losartan by PCP, which is expected to help reduce protein levels in the urine. Hypertension is a contributing factor to the proteinuria, and the patient is currently on losartan 100 mg, which is the maximum dose. The patient has not been monitoring her blood pressure regularly but reported a reading of 130/80 mmHg during the visit. The patient has experienced a weight increase from 163 to 167 pounds, which may also contribute to the proteinuria. 09/28/25 - The patient is a 40-year-old female presenting with proteinuria. - Previous urine nljyryc-zr-ffteteanxi ratio was 250 mg. - Currently on losartan 100 mg daily. HCTZ 12.5 mg was added by PCP due to elevated BP - Liver mass found during CT scan for abdominal pain. - MRI recommended for liver mass evaluation.- pending REcently treated for UTI with Cipro [facility] Medical History (Updated 03/31/25 @ 10:15 by Jack Loera MD) Depression Asthma Hypertension Surgical History H/O tubal ligation (~05/2025) History of appendectomy Family History Father Lung cancer Mother Hypertension Kidney disease Diabetes mellitus Social History Alcohol intake: never Physical Exam Vital Signs: BMI result Body Mass Index 32.1 Comfortable Neck supple no JVD. Lungs entry equal no rales. Heart S1-S2 heard no gallop or rub. Abdomen soft nontender. Neuro alert awake oriented. No asterixis. Extremities no edema. Results Reviewed Nephrology Results: Hgb, (12.0-16.0) 12.5 g/dl 08/31/25 WBC, (4.8-10.8) 16.5 X10*3/uL H 08/31/25 Plt Count, (160-400) 396 X10*3/uL 08/31/25 Sodium, (135-145) 137 mmol/L 08/31/25 Potassium, (3.3-5.1) 3.6 mmol/L 08/31/25 Chloride, (96-108) 101 mmol/L 08/31/25 Carbon Dioxide, (22-29) 27 mmol/L 08/31/25 BUN, (9-16) 22 mg/dL H 08/31/25 Creatinine, (0.5-1.4) 0.89 mg/dL 08/31/25 Calcium, (8.4-10.2) 9.4 mg/dL 08/31/25 Urine Protein, (Neg-Trace) 300 (3+) mg/dL H 03/31/25 Urine Creatinine 395.78 mg/dL 03/31/25 Protein/Creatinin Ratio, (<0.2) 0.25 H 03/24/25 Renal US 04/08/25 Assessment & Plan Assessment & Plan (1) Proteinuria: Code(s): R80.9 - Proteinuria, unspecified Category: Medical Plan Young woman with hypertension and proteinuria. Renal function is normal. She has a history of preeclampsia. She also has an elevated BMI. workup for the proteinuria including basic serologies were all normal She should stay on low-sodium diet. She will benefit from weight loss. She has been advised to engage in regular physical activity, such as walking for 40 minutes daily, and to reduce sugar and carbohydrate intake to aid in weight management. Maintain blood pressure less than 130/80. Agree with Losartan 100 mg QD Based on the normal serologies , I would hold off on kidney biopsy Liver mass seen on CT scan MRI recommended and pending Orders: Orders Creatinine Urine Today R80.9 - Proteinuria, unspecified Total Protein Urine Random Today R80.9 - Proteinuria, unspecified UA and rflx microscopic Today R80.9 - Proteinuria, unspecified Urine Cytology Today R31.9 - Hematuria, unspecified Coding Level of Care Code Est Pt Level 4 (26827) Diagnoses Proteinuria R80.9
--- OUTSIDE RECORDS SUMMARY | 2025-09-27 12:18 | XMS_ITS | Patient Health Record ---
Author Organization [facility] Address [address] [place] [address] Care Team Providers Care Facing Machine Operator Name Role Phone NO, PCP Primary Care Provider [phone] Sridevi Krishnan Unavailable ZZArchive - DO NOT USE, Supportive Counseling Un available Unavailable Reason For Referral No Information Plan Of Treatment No Information Insurance Providers Payer Name Payer Address Payer Phone Subscriber Number Group Number Insured Name Patient Relationship to Insured Coverage Start Date Coverage End Date [place] Medicaid Standard [address] [place] [address] [phone] [id number] Moriah Ambrocio Self - patient is the insured 2
== END 2025-09-27 11:51 | disposition home or self-care (01) ==
PROVIDERS: PCP Internal Medicine; Visit Provider Internal Medicine Hypertension Specialist
DX: R80.9 Proteinuria, unspecified (principal)
CPT/HCPCS: 99214

== ENCOUNTER 2025-09-27 10:33 | Outpatient (REF) | payer MEDICAID, SELFPAY ==
[2025-09-27 13:12] LABS: Appearance Urine Clear; Glucose Urine UA Negative (Negative); PH 7.5 (5.0-9.0); Specific Gravity - Urine 1.015 (1.005-1.025); UMIC TRIGGER UA YES
[2025-09-27 14:21] LABS: Total Protein Urine Random 8 mg/dL (<12)
== END 2025-09-27 10:34 | disposition home or self-care (01) ==
LOC: HO.10HDLNP 10:33
PROVIDERS: Visit Provider Internal Medicine Hypertension Specialist
DX: R80.9 Proteinuria, unspecified (principal); R31.9 Hematuria, unspecified
CPT/HCPCS: 81001; 82570; 84156; 88112; 99212